=== PATIENT | female | born 1960 ===

== ENCOUNTER 2017-05-18 23:57 | Emergency (ER) | payer OTHER, BC ==
[2017-05-18 23:58] VITALS: BMI 25.6
--- NOTE | 2017-05-19 00:09 | ED PDOC ---
Arrival/HPI - General Time Seen by Provider: 05/19/17 00:04 Historian: Patient - History of Present Illness Narrative History of Present Illness (Text): 05/19/17 00:04 56 y/o female, pmh including IBS with constipation, nkda, post menopausal, c/o rt. knee injury at work x 1 hour. 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 knee against the door, walking at the scene, very minimal pain and about to go home, told to come to the ER for evaluation, refused pain meds, no numbness or tingling, no calf pain, no other medical or psychological complaints. Past Medical History - Provider Review Nursing Documentation Reviewed: Yes - Infectious Disease Hx of Infectious Diseases: None - Tetanus Immunization Tetanus Immunization: Unknown - Past Medical History Past Medical History: No Previous - Cardiac Hx Pacemaker: No - Neurological Hx Paralysis: No - Hematological/Oncological Hx Blood Transfusions: No Hx Blood Transfusion Reaction: No - Musculoskeletal/Rheumatological Hx Musculoskeletal Disorders: No - Gastrointestinal Hx Gastrointestinal Disorders: Yes Hx Bowel Surgery: Yes - Genitourinary/Gynecological Hx Genitourinary Disorders: Yes Other/Comment: Hx Uterine Fibroids - Psychiatric Hx Substance Use: No - Surgical History Hx Hysterectomy: Yes Hx Orthopedic Surgery: Yes (left knee ligament repair) Other/Comment: Hx Partial Resection of Small intestine. Hx Lysis of Peritoneal adhesions. Hx Local excision/destruction of ovary - Anesthesia Hx Anesthesia Reactions: No Hx Malignant Hyperthermia: No - Suicidal Assessment Feels Threatened In Home Enviroment: No Family/Social History - Physician Review Nursing Documentation Reviewed: Yes Family/Social History: Unknown Family HX Smoking Status: Never Smoked Hx Alcohol Use: No Hx Substance Use: No Hx Substance Use Treatment: No Allergies/Home Meds Allergies/Adverse Reactions: Allergies latex Allergy (Severe, Verified 01/06/17 09:04) ANAPHYLAXIS Review of Systems - Review of Systems Constitutional: absent: Fatigue, Fevers Eyes: absent: Vision Changes ENT: absent: Hearing Changes Respiratory: absent: SOB, Cough Cardiovascular: absent: Chest Pain Gastrointestinal: absent: Abdominal Pain, Nausea, Vomiting Musculoskeletal: Arthralgias. absent: Back Pain, Neck Pain, Joint Swelling, Myalgias Skin: absent: Rash, Pruritis Neurological: absent: Headache, Dizziness Psychiatric: absent: Anxiety, Depression Physical Exam - Systems Exam Head: Present: Atraumatic, Normocephalic Pupils: Present: PERRL Extroacular Muscles: Present: EOMI Conjunctiva: Present: Normal Mouth: Present: Moist Mucous Membranes Neck: Present: Normal Range of Motion Respiratory/Chest: Present: Clear to Auscultation, Good Air Exchange. No: Respiratory Distress, Accessory Muscle Use Cardiovascular: Present: Regular Rate and Rhythm, Normal S1, S2. No: Murmurs Abdomen: Present: Normal Bowel Sounds. No: Tenderness, Distention, Peritoneal Signs Back: Present: Normal Inspection Upper Extremity: Present: Normal Inspection. No: Cyanosis, Edema Lower Extremity: Present: Normal Inspection, Other (Rt. knee: no tenderness or swelling, no deformity, no skin breaking, no laceration or abrasion, negative sarah and stevens signs, FROM without limitation, sensation intact, motor 5/5, +DPPT pulses, capillary refill< 2 seconds, neurovascular intact. ). No: Edema Neurological: Present: GCS=15, CN II-XII Intact, Speech Normal Skin: Present: Warm, Dry, Normal Color. No: Rashes Psychiatric: Present: Alert, Oriented x 3, Normal Insight, Normal Concentration Medical Decision Making ED Course and Treatment: 05/19/17 00:11 -Pt. refused imaging and no emergent indication of imagine indicated at this time. -Pt. refused pain meds. -Discharge home with naproxen, ice compression, follow up with your own pmd and employee health within 2 days, return to the ER for any new or worsening signs or symptoms. - PA / [employer] / Resident Statement MD/DO has reviewed & agrees with the documentation as recorded. Disposition/Present on Arrival - Present on Arrival Any Indicators Present on Arrival: No History of DVT/PE: No History of Uncontrolled Diabetes: No Urinary Catheter: No History of Decub. Ulcer: No History Surgical Site Infection Following: None - Disposition Have Diagnosis and Disposition been Completed?: Yes Diagnosis: Knee injury Disposition: HOME/ ROUTINE Disposition Time: 00:15 Patient Plan: Discharge Condition: GOOD Additional Instructions: -Discharge home with naproxen, ice compression, follow up with your own pmd and employee health within 2 days, return to the ER for any new or worsening signs or symptoms. Prescriptions: Naproxen 500 mg PO BID PRN #24 tablet.dr MACKEY Reason: Other Referrals: Janneth Shea MD [Staff Provider] - Follow up with primary
[2017-05-19 00:12] VITALS: RESP 18; TEMP 98.8; O2SAT 100
[2017-05-19 00:31] VITALS: BP 134/89; PULSE 90
== END 2017-05-19 00:35 | disposition home or self-care (01) ==
LOC: ED 23:57
DX: S89.91XA Unspecified injury of right lower leg, initial encounter (principal); W22.8XXA Striking against or struck by other objects, initial encounter; Y99.0 Civilian activity done for income or pay

== ENCOUNTER 2017-07-31 10:52 | Day surgery (SDC) | payer OTHER ==
[2017-07-22 09:08] VITALS: BMI 26.4
[2017-07-31] MEDS ORDERED: Propofol 10 mg/ml Inj (20 ML) ONE (12:23)
[2017-07-31] MEDS ORDERED: Sodium Chloride 0.9% 1,000 ML IV SCH (13:00)
[2017-07-31 14:39] VITALS: BP 115/69; PULSE 70; RESP 16; TEMP 98.1; O2SAT 99
== END 2017-07-31 14:17 | disposition home or self-care (01) ==
LOC: ENDO 10:52
PROVIDERS: ATTEND Internal Medicine Gastroenterology
DX: K57.30 Diverticulosis of large intestine without perforation or abscess without bleeding (principal); K64.8 Other hemorrhoids; K56.2 Volvulus
CPT/HCPCS: 45378; J2001; J2704; J7040 ×2